=== PATIENT | female | born 1995 | race Caucasian/White ===

== ENCOUNTER 2016-06-14 13:58 | Inpatient (IN) | payer MEDICAID ==
[~2016-06-14] VITALS: Ht 160 cm; Wt 69.9 kg
[2016-06-14] VITALS (55 sets, daily range): BP systolic 66–133; BP diastolic 44–91; PULSE 64–223; RESP 16–18; TEMP 98–98.8; O2SAT 98–100
[~2016-06-14 13:58] MED LIST: PRENCAP35 PO
--- NOTE | 2016-06-14 15:08 | PD ---
HPI Chief Complaint blood in urine x1 while wiping, contractions q5m Date Seen: Jun 14, 2016 Time Seen: 14:40 Travel History International Travel<30 Days: No Contact w/Intl Traveler<30Days: No History of Present Illness HPI 21 year-old at 40/5, EDC 06/09/16, who presents with blood in urine x1 while wiping and intermittent contractions. Came in after concerned urine was an orange-yellow color this morning and minimal blood on toliet paper this AM. It has now resolved. Apart from low back pain unchanged from previous , no acute complaints. Feeling baby move. Denies vaginal bleeding or loss of fluid. Intermittent contractions every 5 minutes. GBS negative. Para: 1 : 2 Last Menstrual Period: Sep 03, 2015 Miscarriage: 0 : 0 History Past Medical History Narrative Medical "Kidney reflux" when [age] or [age]. Denies recurrent UTIs or seeing kidney doctor since then. Obstetric History Obstetric History 09/2013- vaginal delivery of 8 lb 6oz infant at 41 weeks. Induced. Past Surgical History Surgical History: No Previous Surgery Family History Narrative Family History Denies any family history of bleeding disorders, genetic disorders, or problems with anesthesia. Family History: Negative Social History Narrative Social History Occupation: [employer] mother to 2 1/2 year old daughter. Alcohol Use: No Tobacco Use: No Substance Abuse: No Allergies-Medications (Allergen,Severity, Reaction): Coded Allergies: No Known Allergies (Unverified , 06/14/16) Home Meds Active Scripts Without A Vit W/ Fe F (Provida Ob 20-20-1.25 mg)1 Cap Cap1 Tab PO DAILY #30 BOTTLE Ref 12 Prov:Laura Cristobal 04/16/16 Review of Systems Except as stated in HPI: all other systems reviewed are Neg Physical Exam Narrative VITALS: 109/71, 90, 97.6 GEN: Gravid female in no acute distress. Presents with and two year old daughter. SKIN: Warm and dry. ENT: PERRL. Mucous membranes moist. NECK: Supple, trachea midline CV: RRR. No murmurs. RESP: Equal breath sounds bilaterally. Lungs CTAB. GI: Abdomen non-tender, gravid. GENITOURINARY: 2-3cm/80/-1 Presentation: Vertex Membranes: intact FHT's: Category: 1 Baseline: 150 Reactive: Yes Variability: Moderate Decels: No Contractions: q2-4minutes MSK: No peripheral edema BACK: Nontender without obvious deformity NEURO:Motor and sensory grossly within normal limits Data Data Vital Signs Reviewed: Yes Orders Vital Signs (Adult) .ON ADMISSION (06/14/16 14:35) ^ Labor Status (06/14/16 14:35) ^ Hydration (06/14/16 14:35) MDM Medical Record Reviewed: Yes Plan 21 year-old female at 40.5 presents to OB ED with hematuria x1, resolved, and contractions. Bishops score: 10 1. Intrauterine , 40 weeks gestation, GBS negative -Category I tracing reassuring -Mother AFVSS -Cervical exam 2-/-1 with bloody discharge on glove. -Bishops score: 10 -Ambulate patient and repeat cervical exam and NST in 30 minutes -Pt reported stronger, painful contractions, with increased frequency- unable to tolerate repeat cervical exam -Will admit for active labor at postdates and repeat cervical exam after receives epidural and pain is more controlled 2. Hematuria -Urine sample in room clear yellow -Pt appears well hydrated and hemodynamically stable -U/A and CBC considered and deemed unnecessary -Likely vaginal spotting which has resolved SDW: Dr Bangura, Ludy Dunn MD R1 Jun 14, 2016 15:08
[2016-06-14] MEDS ORDERED: MINERAL OIL 10 ML VIAL TOPICAL PRN (15:45)
[2016-06-14] MEDS ORDERED: CITRIC ACID-SODIUM CITRATE LIQ 30 ML UDC PO SCH (15:45)
[2016-06-14] MEDS ORDERED: OXYTOCIN 30 UNITS-500ML PREMIX 500 ML IV ONE (15:45)
[2016-06-14] MEDS ORDERED: LIDOCAINE HCL 1% 50 ML VIAL INFIL PRN (15:45)
[2016-06-14] MEDS ORDERED: SODIUM CHLORID 0.9% 500 ML INJ 500 ML IV PRN (15:45)
[2016-06-14] MEDS ORDERED: LIDOCAINE HCL 1% 50 ML VIAL I-DERMAL PRN (15:45)
[2016-06-14] MEDS ORDERED: ONDANSETRON HCL 4 MG/2 ML VIAL IV PRN (15:45)
[2016-06-14] MEDS ORDERED: DIPHTH/TETANUS/ACEL PERTUSSIS (BOOSTER) 0.5 ML VIAL/PFS IM ONE (16:00)
[2016-06-14] MEDS ORDERED: MEASLES, MUMPS, RUBELLA VACCINE 0.5 ML VIAL SQ ONE (16:00)
--- NOTE | 2016-06-14 16:02 | HHI.HP ---
History & Physical H&P OBGYN H&P HPI Chief Complaint active labor, post-dates, painful contractions Date Seen: Jun 14, 2016 Time Seen: 15:40 Travel History International Travel<30 Days: No Contact w/Intl Traveler<30Days: No History of Present Illness HPI 21 year-old at 40/5, EDC 06/09/16, who presented to OB ED for blood in urine x1 while wiping and intermittent contractions. Came in after concerned urine was an orange-yellow color this morning and minimal blood on toliet paper this AM. It has now resolved. Apart from low back pain unchanged from previous, no acute complaints. Feeling baby move. Denies vaginal bleeding or loss of fluid. Intermittent contractions every 5 minutes. GBS negative. Cervical exam found patient at 2-3cm/80/-1 and very posterior After ambulating for 30 minutes, reported increased painful contractions. Was unable to tolerate repeat cervical exam secondary to painful contractions and pelvic pressure. Appeared to be in significant discomfort. +FM. Denies VB or LoF. Rubella immune- will need MMR vaccine after delivery. Para: 1 : 2 Last Menstrual Period: Sep 03, 2015 Miscarriage: 0 : 0 History Past Medical History Narrative Medical "Kidney reflux" when [age] or [age]. Denies recurrent UTIs or seeing kidney doctor since then. Obstetric History Obstetric History 09/2013- induced vaginal delivery of 8 lb 6oz infant at 41 weeks Past Surgical History Surgical History: No Previous Surgery Family History Narrative Family History Denies any family history of bleeding disorders, genetic disorders, or problems with anesthesia. 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 Alcohol Use: No Tobacco Use: No Substance Abuse: No Allergies-Medications (Allergen,Severity, Reaction): Coded Allergies: No Known Allergies (Unverified , 06/14/16) Home Meds Active Scripts Without A Vit W/ Fe F (Provida Ob 20-20-1.25 mg)1 Cap Cap1 Tab PO DAILY #30 BOTTLE Ref 12 Prov:Laura Cristobal 04/16/16 Review of Systems Except as stated in HPI: all other systems reviewed are Neg Physical Exam Narrative VITALS: 109/71, 90, 97.6 GEN: Gravid female in no acute distress. Presents with and two year old daughter. SKIN: Warm and dry. ENT: PERRL. Mucous membranes moist. NECK: Supple, trachea midline CV: RRR. No murmurs. RESP: Equal breath sounds bilaterally. Lungs CTAB. GI: Abdomen non-tender, gravid. GENITOURINARY: unable to tolerate secondary to pain. Cervix very posterior. FHT's: Category: 1 Baseline: 150 Reactive: Yes Variability: Moderate Decels: No Contractions: q2-3 minutes MSK: No peripheral edema BACK: Nontender without obvious deformity NEURO:Motor and sensory grossly within normal limits Data Data Vital Signs Reviewed: Yes Orders Vital Signs (Adult) .ON ADMISSION (06/14/16 14:35) ^ Labor Status (06/14/16 14:35) ^ Hydration (06/14/16 14:35) Ob (2e) Additional Admit Info (06/14/16 15:44) Admit To Inpatient (06/14/16 ) Code Status (06/14/16 15:44) Vital Signs (Adult) .Per protocol (06/14/16 15:44) Activity Oob Ad Xenia (06/14/16 15:44) ^ Heart (06/14/16 15:44) ^ Amnioinfusion (06/14/16 15:44) Urinary Catheter Management .ONCE (06/14/16 15:44) Diet Liquid (06/14/16 Lunch) Lactated Ringer's 1000 Ml Inj (Lr 1000 M (06/14/16 15:44) Lactated Ringer's 1000 Ml Inj (Lr 1000 M (06/14/16 15:44) Sodium Chlorid 0.9% 500 Ml Inj (Ns 500 M (06/14/16 15:45) Sodium Chlor 0.9% 1000 Ml Inj (Ns 1000 M (06/14/16 16:04) Lidocaine 1% Inj (50 Ml) (Xylocaine 1% I (06/14/16 15:45) Citric Acid-Sodium Citrate Liq (Bicitra (06/14/16 15:45) Ondansetron Inj (Zofran Inj) (06/14/16 15:45) Fentanyl Inj (Fentanyl Inj) (06/14/16 15:45) Fentanyl Inj (Fentanyl Inj) (06/14/16 15:45) Complete Blood Count With Diff (06/14/16 15:44) Hold Clot (06/14/16 15:44) Abo/Rh Blood Type (06/14/16 15:44) Urinalysis - C+S If Indicated (06/14/16 15:44) Resp Oxygen Non Rebreathe Mask (06/14/16 ) ^ Epidural / Intrathecal Infus (06/14/16 15:44) Oxytocin 30 Units-500ml Premix (Pitocin (06/14/16 15:45) Lidocaine 1% Inj (50 Ml) (Xylocaine 1% I (06/14/16 15:45) Light Mineral Oil (Muri-Lube Oil) (06/14/16 15:45) Inpatient Certification (06/14/16 ) [facility] Medical Record Reviewed: Yes Plan 21 year-old female at 40.5 presents to OB ED with hematuria x1, resolved, and contractions. After ambulation, reports painful contractions, increasing in strength and frequency. To admit in active labor. PMHx non-contributory 1. Intrauterine , 40 weeks gestation -Admit in active labor -U/A, ABO/Rh screen, CBC pending -Mother blood type AB-, will need Rhogam after delivery -Mother RPR non-immune, will need MMR vaccine after delivery -Pt desires epidural- will start fluid bolus and encourage MATHEW for pain control -Category I tracing, continuous monitoring -Repeat cervical exam after epidural. On admission, 2-3/80/-1. Bishops score: 10 -Continue supportive care 2. Painful contractions -Pain control and continuous monitoring, as above SDW: Dr Bangura, Ludy Dunn MD R1 Jun 14, 2016 16:02
[2016-06-14] MEDS ORDERED: SODIUM CHLOR 0.9% 1000 ML INJ 1,000 ML IV PRN (16:04)
[2016-06-14] MEDS: LACTATED RINGER'S 1000 ML INJ 1,000 ML IV PRN ×2 (16:15→17:23)
[2016-06-14] MEDS: LACTATED RINGER'S 1000 ML INJ 1,000 ML IV SCH ×2 (16:25→17:45)
[2016-06-14] MEDS ORDERED: fentaNYL 2MCG-BUPIV 0.125% INJ 100 ML ONE (16:33)
[2016-06-14 16:34] LABS: AUTOMATED NEUTROPHIL # 7.9 TH/MM3 (1.8-7.7); BASOPHIL % 0.2 % (0.0-2.0); EOSINOPHIL # 0.1 TH/MM3 (0-0.4); EOSINOPHIL % 1.1 % (0.0-4.0); HEMATOCRIT 32.6 % (35.0-46.0); HEMO FLAGS DIFF FINAL; LYMPH % 15.4 % (9.0-44.0); LYMPHOCYTE # 1.6 TH/MM3 (1.0-4.8); MEAN CELL VOLUME 80.4 FL (80.0-100.0); MEAN CORPUSCULAR HEMOGLOBIN 26.8 PG (27.0-34.0); MEAN CORPUSCULAR HGB CONC 33.3 % (32.0-36.0); MONO % 8.7 % (0.0-8.0); NEUT % 74.6 % (16.0-70.0); PLATELET COUNT 159 TH/MM3 (150-450); RED BLOOD COUNT 4.05 MIL/MM3 (4.00-5.30); RED CELL DISTRIBUTION WIDTH 14.4 % (11.6-17.2); WHITE BLOOD COUNT 10.6 TH/MM3 (4.0-11.0)
--- NOTE | 2016-06-14 16:54 | PD.LABORPN ---
Objective Vital Signs Vital Signs Date Time Temp Pulse Resp B/P Pulse Ox O2 Delivery O2 Flow Rate FiO2 06/14/16 16:35 64 18 107/56 06/14/16 16:35 98.0 Objective Pelvic Exam: Cervix: [-] Dilatation: [-] Effacement: [-] Station: [-] Presentation: [-] Membranes: [intact or ruptured] Uterine Contractions: [-] FHT's: Category: [-] 1 Baseline: [-]130 Reactive: [-] + Variability: [-]moderate Decels: [-] 0 Elisa Aguirre MD Jun 14, 2016 16:54
[2016-06-14 17:01] LABS: BACTERIA, URINE OCC /hpf; BLOOD, URINE NEG (NEG); COMMENT (UR) CULT NOT INDICATED; CULTURE IF INDICATED CULT NOT INDICATED; GLUCOSE,URINE NEG (NEG); KETONE, URINE NEG (NEG); MUCUS URINE FEW /lpf (OCC); NITRITE,URINE NEG (NEG); PH, URINE 6.5 (5.0-8.5); SQUAMOUS EPITHELIAL CELL URINE <1 /hpf (0-5); URINE COLOR YELLOW (YELLW/STRAW)
[2016-06-14] MEDS ORDERED: ePHEDrine/NS 25 MG/5 ML SYR ONE (17:21)
--- NOTE | 2016-06-14 18:35 | PD.LABORPN ---
Subjective Subjective Patient has been sitting up for an epidural, once she received it it was one- sided, dropped her blood pressure hypotensive episode that required a dose of ephedrine, the epidural catheter was pulled out slightly, Patient feeling much more comfortable Objective Vital Signs Vital Signs Date Time Temp Pulse Resp B/P Pulse Ox O2 Delivery O2 Flow Rate FiO2 06/14/16 18:19 102 95/77 06/14/16 18:16 112 133/91 06/14/16 18:15 99 98 06/14/16 18:11 93 118/66 06/14/16 18:10 105 105/59 06/14/16 18:10 86 99 06/14/16 17:57 111/58 06/14/16 17:52 66/48 06/14/16 17:52 128 06/14/16 17:47 87 84/45 06/14/16 17:46 105 89/57 06/14/16 17:45 85 06/14/16 17:41 87 129/51 06/14/16 17:40 80 06/14/16 17:39 75 06/14/16 17:39 100/44 06/14/16 17:35 89 93/50 100 06/14/16 17:31 183 95/69 06/14/16 17:30 105 06/14/16 17:25 93 81/61 06/14/16 17:20 98/54 06/14/16 17:20 223 06/14/16 17:19 81 96/50 06/14/16 17:15 85 88/49 06/14/16 17:12 98.5 16 06/14/16 17:10 84 102/56 06/14/16 17:05 77 114/68 99 06/14/16 17:05 84 06/14/16 17:00 82 99 06/14/16 16:35 64 18 107/56 06/14/16 16:35 98.0 Objective Pelvic Exam: Cervix: [-] Midline Dilatation: [8 cm-] Effacement: [100% effaced-] Station: [0 station-] Presentation: [Vertex-] Membranes: [intact -bulging Uterine Contractions: [-] Every 2-3 FHT's: Category: [-]1 Baseline: [-] 145 Reactive: [-] + Variability: [-] Moderate pxtu-pn-krmh variability with accelerations up to 180 Decels: [-] 0 Assessment/Plan Assessment and Plan 40 weeks 5 days Progression of labor Hypotensive episode with epidural resolved with ephedrine Plan; will allow patient to rest labor down No artificial rupture of membranes at this point Elisa Aguirre MD Jun 14, 2016 18:35
--- NOTE | 2016-06-14 21:10 | PD.LABORPN ---
Subjective Subjective feeling contractions pushed epidural button Objective Vital Signs Vital Signs Date Time Temp Pulse Resp B/P Pulse Ox O2 Delivery O2 Flow Rate FiO2 06/14/16 20:30 92 100/63 06/14/16 20:01 86 96/55 06/14/16 19:30 109 99/58 06/14/16 19:26 98.8 18 06/14/16 19:00 97 101/56 06/14/16 18:37 99 96/56 06/14/16 18:34 94 100/49 06/14/16 18:30 98 06/14/16 18:25 96 06/14/16 18:24 107/91 06/14/16 18:21 105 93/55 06/14/16 18:20 99 06/14/16 18:19 102 95/77 06/14/16 18:16 112 133/91 06/14/16 18:15 99 98 06/14/16 18:11 93 118/66 06/14/16 18:10 105 105/59 06/14/16 18:10 86 99 06/14/16 17:57 111/58 06/14/16 17:57 96 06/14/16 17:55 98 06/14/16 17:53 93/65 06/14/16 17:52 66/48 06/14/16 17:52 128 06/14/16 17:50 87 70/52 06/14/16 17:50 88 06/14/16 17:47 87 84/45 06/14/16 17:46 105 89/57 06/14/16 17:45 85 06/14/16 17:41 87 129/51 06/14/16 17:40 80 06/14/16 17:39 75 06/14/16 17:39 100/44 06/14/16 17:35 89 93/50 100 06/14/16 17:31 183 95/69 06/14/16 17:30 105 06/14/16 17:25 93 81/61 06/14/16 17:20 98/54 06/14/16 17:20 223 06/14/16 17:19 81 96/50 06/14/16 17:15 85 88/49 06/14/16 17:12 98.5 16 06/14/16 17:10 84 102/56 06/14/16 17:05 77 114/68 99 06/14/16 17:05 84 06/14/16 17:00 82 99 06/14/16 16:35 64 18 107/56 06/14/16 16:35 98.0 Objective Pelvic Exam: Cervix: [-] Midline Dilatation: [-] 9 cm Effacement: [-] 100% effaced Station: [-] -1 station Presentation: [-] Vertex Membranes: ruptured] fluid is clear every 3 minutes Uterine Contractions: [-] FHT's: Category: [-] 1 Baseline: [-] 140 Reactive: [-] + Accelerations Variability: [-] Moderate Decels: [-] 0 Assessment/Plan Assessment and Plan Progression in labor Continue to monitor Anticipate vaginal delivery Category 1 tracing Elisa Aguirre MD Jun 14, 2016 21:10
--- NOTE | 2016-06-14 22:39 | PD.OB.DELI ---
Delivery Date: Jun 14, 2016 Anesthesia: Epidural Episiotomy: Midline Vaginal Delivery: Normal Presentation: Occiput anterior Nuchal Cord: None Delayed cord clamping (45 sec): Yes Infant: Female One Minute : 8 Five Minute : 9 Weight: [id number] Care: Suctioned, Spontaneous crying Placenta: Spontaneous delivery Laceration: Episiotomy Repair: Chromic running Elisa Aguirre MD Jun 14, 2016 22:39
[2016-06-14] MEDS ORDERED: ALUMINUM/MAGNESIUM/SIMETH 30 ML CUP PO PRN (22:45)
[2016-06-14] MEDS ORDERED: WITCH HAZEL 50%/GLYCERIN 12.5% 40 PAD JAR TOPICAL PRN (22:45)
[2016-06-14] MEDS ORDERED: ACETAMINOPHEN 325 MG TAB PO PRN (22:45)
[2016-06-14] MEDS ORDERED: SODIUM CHLORIDE 0.9% FLUSH 5 ML FLUSH IV PRN (22:45)
[2016-06-14] MEDS ORDERED: DOCUSATE SODIUM 50 MG/SENNA 8.6 MG TAB PO PRN (22:45)
[2016-06-14] MEDS ORDERED: ONDANSETRON ODT 4 MG TAB PO PRN (22:45)
[2016-06-14] MEDS ORDERED: ZOLPIDEM TARTRATE 5 MG TAB PO PRN (22:45)
[2016-06-14] MEDS ORDERED: BENZOCAINE 20% TOPICAL SPRAY 60 ML CAN TOPICAL PRN (22:45)
[2016-06-15] VITALS (8 sets, daily range): BP systolic 97–115; BP diastolic 48–71; PULSE 74–93; RESP 18; TEMP 98.4
[2016-06-15] MEDS: IBUPROFEN 600 MG TAB PO PRN ×4 (00:17→21:06)
[2016-06-15] MEDS ORDERED: CALCIUM CARBONATE 500 MG CHEWABLE TAB CHEW PRN (07:30)
[2016-06-15] MEDS ORDERED: ACETAMINOPHEN/HYDROcodone 325 MG/10 MG TAB PO PRN (07:30)
[2016-06-15] MEDS ORDERED: PETROLEUM/SHARK LIVER OIL 60 GM TUBE RECTAL PRN (07:30)
--- NOTE | 2016-06-15 07:33 | HHI.OB ---
Subjective Post Day: 2 Remarks POD2. Pain well-controlled. Eating, voiding, ambulating without difficulty. + Flatus, +BM. Encouraged OOB. Intends to both breast and formula feeding. Would like OCP for contraception. Has used combo pill in past w/ minimal problems. Stated took it regularly. Discussed need to take progestone only pill due to BF and increased s/e breakthrough bleeding. F/u with [facility]. Denies fevers/chills, SOB/chest pain, calf pain. Will need to receive Rhogam today and MMR vaccine today (Ludy Wilkinson MD R1) Remarks I rounded on the patient. I rounded with the resident. I reviewed the resident' s assessment and plan of care for this patient. I am in agreement with the plan of care for this patient. (Elisa Aguirre MD) Objective Vitals/I&O Vital Signs Date Time Temp Pulse Resp B/P Pulse Ox O2 Delivery O2 Flow Rate FiO2 06/15/16 02:05 98.4 06/15/16 02:05 74 18 99/55 06/15/16 00:50 93 06/15/16 00:50 115/71 06/15/16 00:45 83 103/48 06/15/16 00:31 76 104/65 06/15/16 00:15 82 97/71 06/15/16 00:05 18 06/15/16 00:02 75 104/55 06/14/16 23:45 67 113/64 06/14/16 23:31 74 113/52 06/14/16 23:15 70 107/57 06/14/16 23:05 82 06/14/16 23:00 107/78 06/14/16 22:50 98.3 18 06/14/16 22:45 87 18 108/71 06/14/16 22:41 77 06/14/16 22:41 104/51 06/14/16 22:30 94 109/50 06/14/16 22:23 112 116/58 06/14/16 22:00 129 123/56 06/14/16 21:30 84 107/57 06/14/16 21:14 98.3 18 06/14/16 21:00 87 112/65 06/14/16 20:45 18 06/14/16 20:30 92 100/63 06/14/16 20:01 86 96/55 06/14/16 19:30 109 99/58 06/14/16 19:26 98.8 18 06/14/16 19:00 97 101/56 06/14/16 18:37 99 96/56 06/14/16 18:34 94 100/49 06/14/16 18:30 98 06/14/16 18:25 96 06/14/16 18:24 107/91 06/14/16 18:21 105 93/55 06/14/16 18:20 99 06/14/16 18:19 102 95/77 06/14/16 18:16 112 133/91 06/14/16 18:15 99 98 06/14/16 18:11 93 118/66 06/14/16 18:10 105 105/59 06/14/16 18:10 86 99 06/14/16 17:57 111/58 06/14/16 17:57 96 06/14/16 17:55 98 06/14/16 17:53 93/65 06/14/16 17:52 66/48 06/14/16 17:52 128 06/14/16 17:50 87 70/52 06/14/16 17:50 88 06/14/16 17:47 87 84/45 06/14/16 17:46 105 89/57 06/14/16 17:45 85 06/14/16 17:41 87 129/51 06/14/16 17:40 80 06/14/16 17:39 75 06/14/16 17:39 100/44 06/14/16 17:35 89 93/50 100 06/14/16 17:31 183 95/69 06/14/16 17:30 105 06/14/16 17:25 93 81/61 06/14/16 17:20 98/54 06/14/16 17:20 223 06/14/16 17:19 81 96/50 06/14/16 17:15 85 88/49 06/14/16 17:12 98.5 16 06/14/16 17:10 84 102/56 06/14/16 17:05 77 114/68 99 06/14/16 17:05 84 06/14/16 17:00 82 99 06/14/16 16:35 64 18 107/56 06/14/16 16:35 98.0 Objective Remarks GENERAL: Well-nourished, well-developed patient. CARDIOVASCULAR: Regular rate and rhythm without murmurs, gallops, or rubs. RESPIRATORY: Breath sounds equal bilaterally. No accessory muscle use. ABDOMEN/GI: Abdomen soft, non-tender. Fundus: Firm, non-tender at umbilicus. GENITOURINARY: Light to moderate bleeding. EXTREMITIES: No cyanosis or edema, non-tender, without signs of DVT. Medications and IVs Current Medications Medications (Trade) Dose Ordered Sig/Theodore Route Start Time Stop Time Status Last Admin (NS Flush) 2 ml BID IV 06/15/16 09:00 (NS Flush) 2 ml UNSCH PRN IV 06/14/16 22:45 (Tylenol) 650 mg Q4H PRN PO 06/14/16 22:45 (Motrin) 600 mg Q6H PRN PO 06/14/16 22:45 06/15/16 00:17 (Americaine 20% Top Spr) 1 spray Q4H PRN TOPICAL 06/14/16 22:45 06/15/16 01:59 (Tucks Pads) 1 applic QID PRN TOPICAL 06/14/16 22:45 06/15/16 01:59 (Lisa-Colace) 2 tab Q12H PRN PO 06/14/16 22:45 (Ambien) 5 mg HS PRN PO 06/14/16 22:45 (Mag-Al Plus Susp Liq) 15 ml Q8H PRN PO 06/14/16 22:45 (Zofran Odt) 4 mg Q6H PRN PO 06/14/16 22:45 (Ludy Wilkinson MD R1) Assessment/Plan Assessment and Plan 21 year-old female PPD1 at 40/5 1. Single Delivery, 40 weeks gestation -Continue routine care -Motrin and Percocet PRN pain. Miralax for Bowel Reg. PRN benadryl and PRN zofran on board. -Encouraged OOB. Advised pelvic rest for 6 wks -Follow up OB appointment in 6 weeks with [facility] -Feeding baby by breast and formula. Captain/Check Airman will visit daily while inpatient -Pt requests OCP for preferred control SDW: Dr. Almazan DW: Dr Bangura Discharge Planning PPD1 today. Discharge tomorrow with VSS and pain control. (Ludy Wilkinson MD R1) Ludy Wilkinson MD R1 Jun 15, 2016 07:33 Elisa Aguirre MD Jun 15, 2016 09:47
[2016-06-15] MEDS ORDERED: PILL SPLITTER OTHER PRN (07:45)
[2016-06-15] MEDS: ACETAMINOPHEN/HYDROcodone 325 MG/5 MG TAB PO PRN ×3 (08:16→21:06)
[2016-06-15] MEDS ORDERED: SODIUM CHLORIDE 0.9% FLUSH 5 ML FLUSH IV SCH (09:00)
[2016-06-15] MEDS: POLYETHYLENE GLYCOL 17 GM PKG PO SCH (09:00)
[2016-06-15] MEDS ORDERED: MELATONIN 5 MG TAB PO PRN (21:00)
--- NOTE | 2016-06-16 07:19 | HHI.OB ---
Subjective Post Day: 2 Remarks Patient is doing well this morning. Pain is controlled with medications. Vaginal bleeding within normal limits. She is looking forward to going home. She is attempting to breast-feed. She is ambulating and voiding without difficulty. Passing flatus. No chest pain, shortness of breath. No fevers or chills. (Lawrence Almazan MD R2) Remarks Patient seen and evaluated with resident under direct supervision, agree with assessment and plan. (Quirino Maxwell MD) Objective Vitals/I&O Vital Signs Date Time Temp Pulse Resp B/P Pulse Ox O2 Delivery O2 Flow Rate FiO2 06/15/16 22:06 18 06/15/16 22:06 18 Objective Remarks GENERAL: Well-nourished, well-developed patient. CARDIOVASCULAR: Regular rate and rhythm without murmurs, gallops, or rubs. RESPIRATORY: Breath sounds equal bilaterally. No accessory muscle use. ABDOMEN/GI: Abdomen soft, non-tender. Fundus: Firm, non-tender at umbilicus. GENITOURINARY: Light to moderate bleeding. EXTREMITIES: No cyanosis or edema, non-tender, without signs of DVT. Medications and IVs Current Medications Medications (Trade) Dose Ordered Sig/Theodore Route Start Time Stop Time Status Last Admin (NS Flush) 2 ml BID IV 06/15/16 09:00 (NS Flush) 2 ml UNSCH PRN IV 06/14/16 22:45 (Tylenol) 650 mg Q4H PRN PO 06/14/16 22:45 (Motrin) 600 mg Q6H PRN PO 06/14/16 22:45 06/15/16 21:06 (Americaine 20% Top Spr) 1 spray Q4H PRN TOPICAL 06/14/16 22:45 06/15/16 01:59 (Tucks Pads) 1 applic QID PRN TOPICAL 06/14/16 22:45 06/15/16 01:59 (Lisa-Colace) 2 tab Q12H PRN PO 06/14/16 22:45 (Ambien) 5 mg HS PRN PO 06/14/16 22:45 (Mag-Al Plus Susp Liq) 15 ml Q8H PRN PO 06/14/16 22:45 (Zofran Odt) 4 mg Q6H PRN PO 06/14/16 22:45 (Tums Chew) 500 mg Q6HR PRN CHEW 06/15/16 07:30 (Melatonin) 2.5 mg HS PRN PO 06/15/16 21:00 (Miralax) 17 gm DAILY PO 06/15/16 09:00 (Preparation H Oint) 1 applic Q4HR PRN RECTAL 06/15/16 07:30 ([place] 5-325 Mg) 1 tab Q6H PRN PO 06/15/16 07:30 06/15/16 21:06 ([place] 10-325 Mg) 1 tab Q6H PRN PO 06/15/16 07:30 (Pill Splitter) 1 ea UNSCH PRN OTHER 06/15/16 07:45 (Lawrence Almazan MD R2) Assessment/Plan Assessment and Plan 21 year-old female PPD2 at 40/5 1. Single Delivery, 40 weeks gestation -Continue routine care -Motrin and Percocet PRN pain. Miralax for Bowel Reg. -Encouraged OOB. Advised pelvic rest for 6 wks -Follow up OB appointment in 4 weeks with [facility] -Feeding baby by breast and formula. Character Actress will visit daily while inpatient -Pt requests OCP for preferred control Discharge Planning Discharge today. (Lawrence Almazan MD R2) Lawrence Almazan MD R2 Jun 16, 2016 07:19 Quirino Maxwell MD Jun 16, 2016 09:53
[2016-06-16] MEDS ORDERED: SENN1TAB PO (07:21)
[2016-06-16] MEDS ORDERED: IBUP-232 PO (07:21)
[2016-06-16] MEDS ORDERED: HYDR-3516 PO (07:21)
--- NOTE | 2016-06-16 07:21 | HHI.DCPOC ---
Discharge Care Plan Diagnosis: (1) Vaginal delivery Report Symptoms to Your Doctor -Temperate above 100.5 degrees -Redness, of incision or excessive or foul smelling drainage -Unusual pain or calf pain -Increased vaginal bleeding -Painful or difficulty urinating -Feelings of extreme sadness or anxiety after 2 weeks Goals to Promote Your Health * To prevent worsening of your condition and complications * To maintain your health at the optimal level Directions to Meet Your Goals Take your medications as prescribed Follow your dietary instruction Follow activity as directed Ensure plenty of rest for recovery Drink fluids for hydration Keep your appointments as scheduled Take your immunizations and boosters as scheduled If your symptoms worsen call your PCP, if no PCP go to Urgent Care Center or Emergency Room Smoking is Dangerous to Your Health. Avoid second hand smoke Call the 24-hour crisis hotline for domestic abuse at Lawrence Almazan MD R2 Jun 16, 2016 07:21 Quirino Maxwell MD Jun 16, 2016 09:53
[2016-06-16] MEDS: IBUPROFEN 600 MG TAB PO PRN (08:12)
[2016-06-16] MEDS: ACETAMINOPHEN/HYDROcodone 325 MG/5 MG TAB PO PRN (08:13)
[2016-06-16] MEDS: POLYETHYLENE GLYCOL 17 GM PKG PO SCH (09:00)
[2016-07-18] MEDS ORDERED: AVIATAB PO (11:09)
== END 2016-06-16 12:30 | disposition home or self-care (01) | DRG 775 ==
LOC: HOBED 13:58 → H2EB 15:44 → H1EA 06-15 01:14
PROVIDERS: ADMIT Obstetrics & Gynecology; ATTEND Obstetrics & Gynecology
PROC: 10E0XZZ Delivery of Products of Conception, External Approach (ICD-10-PCS; principal; 2016-06-14)
PROC: 0W8NXZZ Division of Female Perineum, External Approach (ICD-10-PCS; 2016-06-14)
DX: O48.0 Post-term pregnancy (principal); I95.89 Other hypotension; O76 Abnormality in fetal heart rate and rhythm complicating labor and delivery; Z3A.40 40 weeks gestation of pregnancy; Z37.0 Single live birth
CPT/HCPCS: 59025; 81001; 85025; 85461; 86850; 86900; 86901; 90384; J2790; J3010; J7120

== ENCOUNTER 2017-07-12 08:51 | Emergency (ER) | payer MEDICAID ==
[~2017-07-12] VITALS: Ht 160 cm; Wt 63.2 kg
[~2017-07-12 08:51] MED LIST changes: +AVIATAB PO; +LEVO-243 PO; -PRENCAP35 PO; +SENN1TAB PO
[2017-07-12 08:54] VITALS: BP 131/81; PULSE 110; RESP 18; TEMP 99.8; O2SAT 97
[2017-07-12 09:47] LABS: AUTOMATED NEUTROPHIL # 5.1 TH/MM3 (1.8-7.7); BASOPHIL % 0.7 % (0.0-2.0); EOSINOPHIL % 0.7 % (0.0-4.0); HEMATOCRIT 38.9 % (35.0-46.0); HEMOGLOBIN 13.4 GM/DL (11.6-15.3); LYMPH % 5.3 % (9.0-44.0); LYMPHOCYTE # 0.3 TH/MM3 (1.0-4.8); MEAN CELL VOLUME 84.2 FL (80.0-100.0); MEAN CORPUSCULAR HGB CONC 34.5 % (32.0-36.0); MEAN PLATELET VOLUME 9.6 FL (7.0-11.0); MONOCYTE # 0.5 TH/MM3 (0-0.9); NEUT % 85.3 % (16.0-70.0); PLATELET COUNT 134 TH/MM3 (150-450); RED BLOOD COUNT 4.62 MIL/MM3 (4.00-5.30); RED CELL DISTRIBUTION WIDTH 14.3 % (11.6-17.2)
[2017-07-12 10:01] LABS: ALBUMIN 3.6 GM/DL (3.4-5.0); AST (GOT) 17 U/L (15-37); BICARBONATE 21.3 MEQ/L (21.0-32.0); BLOOD UREA NITROGEN 9 MG/DL (7-18); CALCIUM 8.9 MG/DL (8.5-10.1); CHLORIDE 106 MEQ/L (98-107); CREATININE 1.05 MG/DL (0.50-1.00); GLOMERULAR FILTRATION RATE 64 ML/MIN (>89); GLUCOSE,RANDOM 100 MG/DL (74-106); SODIUM (NA) 137 MEQ/L (136-145)
[2017-07-12 10:02] LABS: ALT (GPT) 28 U/L (10-53)
[2017-07-12 10:04] LABS: ALKALINE PHOSPHATASE 68 U/L (45-117); TOTAL BILIRUBIN ADULT 0.3 MG/DL (0.2-1.0); TOTAL PROTEIN 7.4 GM/DL (6.4-8.2)
--- NOTE | 2017-07-12 10:24 | PD ---
HPI Chief Complaint: Cold / Flu Symptoms Time Seen by Provider: 10:18 Travel History International Travel<30 days: No Contact w/Intl Traveler<30days: No Traveled to known affect area: No History of Present Illness HPI The patient is a 22-year-old female who presents emergency department for 1-2 days of cough and cold symptoms. The patient complains of a frontal headache with extraocular movement pain, headache is generalized, subjective fevers, and nausea. She also complains of bodyaches. She has a history of bronchitis 3 months ago, continues to have right sided pleuritic chest wall pain is worse with inspiration and lying on the affected side. She denies any right upper quadrant abdominal pain or postprandial symptoms. She denies any sick contacts. She did not receive an influenza vaccination this year. She denies any cough or tobacco use. Symptoms are mild to moderate, there are no current alleviating or exacerbating factors. PFSH Past Medical History Medical History: Denies Significant Hx Asthma: Yes ( A CHILD) Diminished Hearing: No Genitourinary: Yes (" KIDNEY PROBLEMS A CHILD") Influenza Vaccination: No ?: Not LMP: JUN 2017 Past Surgical History Surgical History: No Previous Surgery Social History Alcohol Use: No Tobacco Use: No Substance Use: No Allergies-Medications (Allergen,Severity, Reaction): Coded Allergies: No Known Allergies (Unverified Adverse Reaction, Unknown, 07/12/17) Reported Meds & Prescriptions Reported Meds & Active Scripts Active Levora-28 Tablet (Levonorgestrel-Ethin Estradiol) 0.15 Mg-30 Mcg Tablet 1 Tab PO DAILY 28 Days Aviane (Levonorgestrel-Ethinyl Estradiol) 0.1-20 Mg-Mcg Tab 1 Tab PO DAILY Senna Plus 8.6-50 mg (Sennosides-Docusate Sodium) 1 Tab Tab 2 Tab PO Q12H PRN Review of Systems Except as stated in HPI: all other systems reviewed are Neg General / Constitutional: Positive: Fever Eyes: Positive: Other HENT: Positive: Headaches, Congestion, No: Neck Pain Cardiovascular: Positive: Chest Pain or Discomfort (right sided chest wall pain and pleuritic pain) Respiratory: Positive: Pleuritic Pain Gastrointestinal: Positive: Nausea, No: Vomiting, Diarrhea, Abdominal Pain Genitourinary: No: Dysuria Musculoskeletal: Positive: Myalgias Physical Exam Narrative GENERAL: Awake, alert, pleasant 22-year-old female who appears her stated age and is in no acute respiratory distress. SKIN: Focused skin assessment warm/dry. HEAD: Atraumatic. Normocephalic. EYES: Pupils equal and round. 4 mm bilateral and reactive. EOMs are intact. ENT: No nasal bleeding or discharge. Mucous membranes pink and moist. TMs are translucent. EACs are clear. Cobblestoning noted the posterior pharynx without exudate. NECK: Trachea midline. No JVD. No meningeal signs. CARDIOVASCULAR: Regular, tachycardic with a heart rate of 105. RESPIRATORY: No accessory muscle use. Clear to auscultation. Breath sounds equal bilaterally. GASTROINTESTINAL: Abdomen soft, non-tender, nondistended. Negative Medrano's. Negative McBurney's. MUSCULOSKELETAL: No obvious deformities. No clubbing. No cyanosis. No edema. NEUROLOGICAL: Awake and alert. No obvious cranial nerve deficits. Motor grossly within normal limits. Normal speech. PSYCHIATRIC: Appropriate mood and affect; insight and judgment normal. Data Data Last Documented VS Vital Signs Date Time Temp Pulse Resp B/P (MAP) Pulse Ox O2 Delivery O2 Flow Rate FiO2 07/12/17 08:54 99.8 110 18 131/81 (98) 97 Orders Orders Complete Blood Count With Diff (07/12/17 08:56) Comprehensive Metabolic Panel (07/12/17 08:56) Influenzae A/B Antigen (07/12/17 08:58) Chest, Single Ap (07/12/17 ) Ed Urine Pregnancytest Poc (07/12/17 10:24) Urinalysis - C+S If Indicated (07/12/17 10:24) Labs Laboratory Tests Test 07/12/17 09:01 07/12/17 10:37 White Blood Count 6.0 TH/MM3 Red Blood Count 4.62 MIL/MM3 Hemoglobin 13.4 GM/DL Hematocrit 38.9 % Mean Corpuscular Volume 84.2 FL Mean Corpuscular Hemoglobin 29.0 PG Mean Corpuscular Hemoglobin Concent 34.5 % Red Cell Distribution Width 14.3 % Platelet Count 134 TH/MM3 Mean Platelet Volume 9.6 FL Neutrophils (%) (Auto) 85.3 % Lymphocytes (%) (Auto) 5.3 % Monocytes (%) (Auto) 8.0 % Eosinophils (%) (Auto) 0.7 % Basophils (%) (Auto) 0.7 % Neutrophils # (Auto) 5.1 TH/MM3 Lymphocytes # (Auto) 0.3 TH/MM3 Monocytes # (Auto) 0.5 TH/MM3 Eosinophils # (Auto) 0.0 TH/MM3 Basophils # (Auto) 0.0 TH/MM3 CBC Comment DIFF FINAL Differential Comment Blood Urea Nitrogen 9 MG/DL Creatinine 1.05 MG/DL Random Glucose 100 MG/DL Total Protein 7.4 GM/DL Albumin 3.6 GM/DL Calcium Level 8.9 MG/DL Alkaline Phosphatase 68 U/L Aspartate Amino Transf (AST/SGOT) 17 U/L Alanine Aminotransferase (ALT/SGPT) 28 U/L Total Bilirubin 0.3 MG/DL Sodium Level 137 MEQ/L Potassium Level 3.8 MEQ/L Chloride Level 106 MEQ/L Carbon Dioxide Level 21.3 MEQ/L Anion Gap 10 MEQ/L Estimat Glomerular Filtration Rate 64 ML/MIN Urine Color YELLOW Urine Turbidity HAZY Urine pH 5.5 Urine Specific [place] 1.026 Urine Protein TRACE mg/dL Urine Glucose (UA) NEG mg/dL Urine Ketones NEG mg/dL Urine Occult Blood NEG Urine Nitrite NEG Urine Bilirubin NEG Urine Urobilinogen LESS THAN 2.0 MG/DL Urine Leukocyte Esterase SMALL Urine RBC 1 /hpf Urine WBC 2 /hpf Urine Squamous Epithelial Cells 8 /hpf Urine Bacteria FEW /hpf Urine Mucus FEW /lpf Microscopic Urinalysis Comment CULT NOT INDICATED MDM Medical Decision Making Medical Screen Exam Complete: Yes Emergency Medical Condition: Yes Medical Record Reviewed: Yes Interpretation(s) Last Impressions Chest X-Ray 07/12/17 0000 Signed Impressions: Service Date/Time: Wednesday, July 12, 2017 10:30 - CONCLUSION: Normal examination. Thomas Watkins Jr., MD Laboratory Tests Test 07/12/17 09:01 07/12/17 10:37 White Blood Count 6.0 TH/MM3 Red Blood Count 4.62 MIL/MM3 Hemoglobin 13.4 GM/DL Hematocrit 38.9 % Mean Corpuscular Volume 84.2 FL Mean Corpuscular Hemoglobin 29.0 PG Mean Corpuscular Hemoglobin Concent 34.5 % Red Cell Distribution Width 14.3 % Platelet Count 134 TH/MM3 Mean Platelet Volume 9.6 FL Neutrophils (%) (Auto) 85.3 % Lymphocytes (%) (Auto) 5.3 % Monocytes (%) (Auto) 8.0 % Eosinophils (%) (Auto) 0.7 % Basophils (%) (Auto) 0.7 % Neutrophils # (Auto) 5.1 TH/MM3 Lymphocytes # (Auto) 0.3 TH/MM3 Monocytes # (Auto) 0.5 TH/MM3 Eosinophils # (Auto) 0.0 TH/MM3 Basophils # (Auto) 0.0 TH/MM3 CBC Comment DIFF FINAL Differential Comment Blood Urea Nitrogen 9 MG/DL Creatinine 1.05 MG/DL Random Glucose 100 MG/DL Total Protein 7.4 GM/DL Albumin 3.6 GM/DL Calcium Level 8.9 MG/DL Alkaline Phosphatase 68 U/L Aspartate Amino Transf (AST/SGOT) 17 U/L Alanine Aminotransferase (ALT/SGPT) 28 U/L Total Bilirubin 0.3 MG/DL Sodium Level 137 MEQ/L Potassium Level 3.8 MEQ/L Chloride Level 106 MEQ/L Carbon Dioxide Level 21.3 MEQ/L Anion Gap 10 MEQ/L Estimat Glomerular Filtration Rate 64 ML/MIN Urine Color YELLOW Urine Turbidity HAZY Urine pH 5.5 Urine Specific [place] 1.026 Urine Protein TRACE mg/dL Urine Glucose (UA) NEG mg/dL Urine Ketones NEG mg/dL Urine Occult Blood NEG Urine Nitrite NEG Urine Bilirubin NEG Urine Urobilinogen LESS THAN 2.0 MG/DL Urine Leukocyte Esterase SMALL Urine RBC 1 /hpf Urine WBC 2 /hpf Urine Squamous Epithelial Cells 8 /hpf Urine Bacteria FEW /hpf Urine Mucus FEW /lpf Microscopic Urinalysis Comment CULT NOT INDICATED Differential Diagnosis Differential diagnosis includes influenza, cavernous sinus thrombosis, venous sinus thrombosis, sinusitis, viral syndrome, pneumonia, bronchitis, pleurisy, UTI. Narrative Course Labs are drawn and sent. Influenza screen was sent to lab, positive for influenza A. Chest x-ray was obtained. UA was sent to lab. I doubt cavernous sinus thrombosis/seen venous sinus thrombosis on top of influenza. Bedside UA test was negative. UA is negative. Chest x-rays unremarkable, no evidence of pleural effusion or pneumonia. Patient has influenza A, will be treated with Tamiflu. She is advised to alternate Tylenol and/or Motrin as needed for pain and fever. Follow-up with a primary physician. Diagnosis Primary Impression: Influenza A Patient Instructions: General Instructions Additional Instructions: Alternate Tylenol and/or Motrin as needed for pain and fever. Plenty fluids to stay hydrated. Tamiflu as directed. Follow-up with her primary physician. Please provide the patient copy of her x-ray results and lab results at discharge. Med/Other Pt SpecificInfo: Prescription(s) given Scripts Oseltamivir (Tamiflu) 75 Mg Cap 75 MG PO BID for Mgmt Viral Infection for 5 Days, #10 CAP 0 Refills Prov: Kamron Pack MD 07/12/17 Disposition: 01 DISCHARGE HOME Condition: Stable Kamron Pack MD Jul 12, 2017 10:24
--- NOTE | 2017-07-12 10:49 | RADRPT ---
EXAM DATE/TIME: 07/12/2017 10:30 [facility] COMPARISON: No previous studies available for comparison. INDICATIONS : Right sided pleuritic pain. MEDICAL HISTORY : None. SURGICAL HISTORY : None. ENCOUNTER: Initial ACUITY: 2 months PAIN SCORE: 4/10 LOCATION: Bilateral chest FINDINGS: A single view of the chest demonstrates the lungs to be symmetrically aerated without evidence of mas s, infiltrate or effusion. The cardiomediastinal contours are unremarkable. Osseous structures are intact. CONCLUSION: Normal examination. Thomas Watkins Jr., MD on July 12, 2017 at 10:43 Board Certified Radiologist. This report was verified electronically.
[2017-07-12 11:02] LABS: BACTERIA, URINE FEW /hpf; BILIRUBIN, URINE NEG (NEG); BLOOD, URINE NEG (NEG); GLUCOSE,URINE NEG (NEG); KETONE, URINE NEG (NEG); MUCUS URINE FEW /lpf (OCC); NITRITE,URINE NEG (NEG); PH, URINE 5.5 (5.0-8.5); SQUAMOUS EPITHELIAL CELL URINE 8 /hpf (0-5); URINE COLOR YELLOW (YELLW/STRAW); URINE LEUKOCYTE ESTERASE SMALL (NEG)
[2017-07-12] MEDS ORDERED: OSEL75 PO (11:31)
[2017-07-12] MEDS ORDERED: ACETAMINOPHEN 325 MG TAB PO ONE (11:45)
== END 2017-07-12 11:48 | disposition home or self-care (01) ==
LOC: NEPD 08:51
DX: J10.1 Influenza due to other identified influenza virus with other respiratory manifestations (principal)
CPT/HCPCS: 71045; 80053; 81001; 84703; 85025; 87804; 99284